=== PATIENT | male | born 1940 | race Caucasian/White ===

== ENCOUNTER 2017-12-21 20:15 | Emergency (ER) | payer MEDICARE, OTHER ==
[2017-12-21 22:03] LABS: ABSOLUTE BASOPHILS # (AUTO) 0.1 10^3/uL (0.0-0.2); ABSOLUTE EOSINOPHILS # (AUTO) 0.4 10^3/uL (0.0-0.6); ABSOLUTE LYMPHOCYTES (AUTO) 1.9 10^3/uL (0.5-4.7); ABSOLUTE MONOCYTES (AUTO) 1.5 10^3/uL (0.1-1.4); BASOPHILS % (AUTO) 0.6 % (0-2); HEMATOCRIT 44.1 % (37.9-51.0); HEMOGLOBIN 14.9 g/dL (13.5-17.0); LYMPHOCYTES % (AUTO) 21.3 % (13-45); MEAN CORPUSCULAR HEMOGLOBIN 30.6 pg (27.0-33.4); MEAN CORPUSCULAR HGB CONC 33.8 g/dL (32.0-36.0); MEAN CORPUSCULAR VOLUME 90 fl (80-97); MONOCYTES % (AUTO) 16.5 % (3-13); PLATELET COUNT 191 10^3/uL (150-450); RED BLOOD COUNT 4.88 10^6/uL (4.35-5.55); SEGMENTED NEUTROPHILS % (AUTO) 56.6 % (42-78); TOTAL CELLS COUNTED % (AUTO) 100 %; WHITE BLOOD COUNT 8.9 10^3/uL (4.0-10.5)
--- NOTE | 2017-12-21 23:34 | ER Document Report ---
ED General - General Chief Complaint: Bloody Stools Stated Complaint: RECTAL BLEEDING Time Seen by Provider: 12/21/17 23:17 Mode of Arrival: Ambulatory Information source: Patient Notes: 77-year-old male with atrial fibrillation(on Xarelto), COPD, hypertension presents with concern for bright red blood in his stool. Patient states that 6 hours prior to arrival he had a bowel movement and noticed that there was blood when he wiped. Since that time patient has had 3 bloody bowel movements. Patient denies any abdominal pain, flank pain, chest pain. He does admit to shortness of breath which he states is chronic and not worse. He denies prior similar symptoms. He denies any changes in medication. Patient has had 2 colonoscopies with the last one 7 years ago. Per the patient it was normal. TRAVEL OUTSIDE OF THE [place] IN LAST 30 DAYS: No - HPI Onset: Just prior to arrival Onset/Duration: Sudden Quality of pain: No pain Severity: None Associated symptoms: None Exacerbated by: Denies Relieved by: Denies Similar symptoms previously: No Recently seen / treated by doctor: Yes - Related Data Allergies/Adverse Reactions: No Known Allergies Allergy (Verified 03/11/15 15:26) Past Medical History - General Information source: Patient - Social History Smoking Status: Former Smoker Frequency of alcohol use: None Drug Abuse: None Lives with: Spouse/Significant other Family History: Reviewed & Not Pertinent Patient has suicidal ideation: No Patient has homicidal ideation: No - Past Medical History Cardiac Medical History: Reports: Hx Atrial Fibrillation, Hx Hypercholesterolemia, Hx Hypertension Denies: Hx Heart Attack Pulmonary Medical History: Reports: Hx COPD Denies: Hx Asthma Neurological Medical History: Denies: Hx Cerebrovascular Accident, Hx Seizures Renal/ Medical History: Denies: Hx Peritoneal Dialysis GI Medical History: Denies: Hx Hepatitis, Hx Hiatal Hernia, Hx Ulcer Infectious Medical History: Denies: Hx Hepatitis Past Surgical History: Reports: Hx Cholecystectomy, Hx Pacemaker. Denies: Hx Open Heart Surgery - Immunizations Hx Diphtheria, Pertussis, Tetanus Vaccination: No Review of Systems - Review of Systems Notes: REVIEW OF SYSTEMS: CONSTITUTIONAL : Denies fever, chills, or sweats. Denies recent illness. Denies weight loss, recent hospitalizations. EENT: Denies visula changes, eye pain. Denies nasal or sinus congestion or discharge. Denies sore throat, oral lesions, difficulty swallowing. CARDIOVASCULAR: Denies chest pain. Denies palpitations or racing or irregular heart beat. Denies lower extremity edema. RESPIRATORY: Denies cough, cold, or chest congestion. Denies shortness of breath, difficulty breathing, or wheezing. GASTROINTESTINAL: Denies abdominal pain or distention. Denies nausea, vomiting , or diarrhea. Denies blood in vomitus, Denies black, tarry stools. Denies constipation. GENITOURINARY: Denies difficulty urinating, painful urination, burning, frequency, blood in urine, or vaginal discharge. MUSCULOSKELETAL: Denies back or neck pain or stiffness. Denies joint pain or swelling. SKIN: Denies rash, lesions or sores. HEMATOLOGIC : Denies easy bruising or bleeding. LYMPHATIC: Denies swollen, enlarged glands. NEUROLOGICAL: Denies confusion or altered mental status. Denies passing out or loss of consciousness. Denies dizziness or lightheadedness. Denies headache. Denies weakness or paralysis or loss of use of either side. Denies problems with gait or speech. Denies sensory loss, numbness, or tingling. Denies seizures. PSYCHIATRIC: Denies anxiety or stress. Denies depression, suicidal ideation, or homicidal ideation. Physical Exam - Vital signs Vitals: Temp Pulse Resp BP Pulse Ox 98.0 F 100 20 137/92 H 95 12/21/17 20:25 12/21/17 20:25 12/21/17 20:25 12/21/17 20:25 12/21/17 20:25 - Notes Notes: PHYSICAL EXAMINATION: GENERAL: Well-appearing, well-nourished and in no acute distress. HEAD: Atraumatic, normocephalic. EYES: Pupils equal round and reactive to light, extraocular movements intact, sclera anicteric, conjunctiva are normal. ENT: Nares patent, oropharynx clear without exudates. Moist mucous membranes. NECK: Normal range of motion, supple without lymphadenopathy LUNGS: Breath sounds clear to auscultation bilaterally and equal. No wheezes rales or rhonchi. HEART: Regular rate and rhythm without murmurs ABDOMEN: Soft, nontender, nondistended abdomen. No guarding, no rebound. No masses appreciated. Rectal: Active bleeding-bright red blood. Musculoskeletal: Normal range of motion, no pitting or edema. No cyanosis. NEUROLOGICAL: Cranial nerves grossly intact. Normal speech, normal gait. Normal sensory, motor exams PSYCH: Normal mood, normal affect. SKIN: Warm, Dry, normal turgor, no rashes or lesions noted. Course - Re-evaluation Re-evalutation: 12/22/17 05:10 Laboratory 12/21/17 12/21/17 12/21/17 21:52 21:52 23:09 WBC 8.9 RBC 4.88 Hgb 14.9 Hct 44.1 MCV 90 MCH 30.6 MCHC 33.8 RDW 14.0 Plt Count 191 Seg Neutrophils % 56.6 Lymphocytes % 21.3 Monocytes % 16.5 H Eosinophils % 5.0 Basophils % 0.6 Absolute Neutrophils 5.0 Absolute Lymphocytes 1.9 Absolute Monocytes 1.5 H Absolute Eosinophils 0.4 Absolute Basophils 0.1 PT INR APTT Sodium Cancelled 142.8 Potassium Cancelled 4.4 Chloride Cancelled 100 Carbon Dioxide Cancelled 34 H Anion Gap Cancelled 9 BUN Cancelled 18 Creatinine Cancelled 1.08 Est GFR ( Amer) Cancelled > 60 Est GFR (Non-Af Amer) Cancelled > 60 Glucose Cancelled 120 H Calcium Cancelled 9.9 Total Bilirubin Cancelled 0.8 Direct Bilirubin Cancelled 0.2 Neonat Total Bilirubin Cancelled Not Reportable Neonat Direct Bilirubin Cancelled Not Reportable Neonat Indirect Bili Cancelled Not Reportable AST Cancelled 39 ALT Cancelled 26 Alkaline Phosphatase Cancelled 117 Total Protein Cancelled 7.8 Albumin Cancelled 4.0 12/21/17 12/22/17 23:47 03:25 WBC 8.5 RBC 4.40 Hgb 13.4 L Hct 38.9 MCV 88 MCH 30.5 MCHC 34.5 RDW 13.8 Plt Count 180 Seg Neutrophils % 62.3 Lymphocytes % 19.8 Monocytes % 13.9 H Eosinophils % 3.5 Basophils % 0.5 Absolute Neutrophils 5.3 Absolute Lymphocytes 1.7 Absolute Monocytes 1.2 Absolute Eosinophils 0.3 Absolute Basophils 0.0 PT 17.0 H INR 1.32 APTT 36.8 H Sodium Potassium Chloride Carbon Dioxide Anion Gap BUN Creatinine Est GFR ( Amer) Est GFR (Non-Af Amer) Glucose Calcium Total Bilirubin Direct Bilirubin Neonat Total Bilirubin Neonat Direct Bilirubin Neonat Indirect Bili AST ALT Alkaline Phosphatase Total Protein Albumin Abdomen/Pelvis CTA 12/22/17 01:30 IMPRESSION: 1. No definite acute vascular abnormalities identified however evaluation is suboptimal due to contrast bolus timing. 2. 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 Follow-up surveillance in 3 years recommended. 3. Diverticulosis without evidence of acute diverticulitis. 4. Enlarged prostate. This exam was performed according to our departmental dose-optimization program, which includes automated exposure control, adjustment of the mA and/or kV according to patient size and/or use of iterative reconstruction technique. 77-year-old male with a history of atrial fibrillation on Xarelto presents with multiple episodes of bright red bleeding from his rectum. Patient denies prior similar symptoms. Patient admits to associated abdominal cramping. On arrival vitals were reviewed and patient is tachycardic, normotensive and not febrile. he does not appear toxic or dehydrated. He is in no acute distress. Previous medical records and nursing notes reviewed. Hemoglobin is stable although it did drop one point during the patient's ED course. Patient has had several bloody bowel movements during his ED course. Patient will be transferred to [facility] for GI evaluation. I believe the likely source of the patient's bleeding is diverticular. He will likely need to stop his Xarelto and have his hemoglobin trended. She is accepted by . 12/22/17 05:11 - Vital Signs Vital signs: Temp Pulse Resp BP Pulse Ox 98.0 F 100 17 109/69 90 L 12/21/17 20:25 12/21/17 20:25 12/22/17 04:54 12/22/17 04:00 12/22/17 04:54 - Laboratory Result Diagrams: 12/22/17 03:25 12/21/17 23:09 Laboratory results interpreted by me: 12/21/17 12/21/17 12/21/17 21:52 23:09 23:47 Hgb Monocytes % 16.5 H Absolute Monocytes 1.5 H PT 17.0 H APTT 36.8 H Carbon Dioxide 34 H Glucose 120 H 12/22/17 03:25 Hgb 13.4 L Monocytes % 13.9 H Absolute Monocytes PT APTT Carbon Dioxide Glucose - Diagnostic Test Radiology reviewed: Image reviewed, Reports reviewed Discharge - Discharge Clinical Impression: Lower GI bleeding Atrial fibrillation Qualifiers: Atrial fibrillation type: chronic Qualified Code(s): I48.2 - Chronic atrial fibrillation Condition: Good Disposition: [facility] Referrals: JUDIE SPANN DPM [NO LOCAL MD] - Follow up as needed
[2017-12-21 23:40] LABS: ALANINE AMINOTRANSFERASE 26 U/L (21-72); ALKALINE PHOSPHATASE 117 U/L (38-126); ANION GAP 9 (5-19); ASPARTATE AMINO TRANSFERASE 39 U/L (17-59); BILIRUBIN,DIRECT 0.2 mg/dL (0.0-0.4); BILIRUBIN,TOTAL 0.8 mg/dL (0.2-1.3); BLOOD UREA NITROGEN 18 mg/dL (7-20); CALCIUM 9.9 mg/dL (8.4-10.2); CARBON DIOXIDE 34 mmol/L (22-30); CHLORIDE 100 mmol/L (98-107); GLUCOSE 120 mg/dL (75-110); POTASSIUM 4.4 mmol/L (3.6-5.0); SODIUM 142.8 mmol/L (137-145); TOTAL PROTEIN 7.8 g/dL (6.3-8.2)
[2017-12-22 00:03] LABS: INTERNATIONAL RATION (INR) 1.32
[2017-12-22 00:04] LABS: PARTIAL THROMBOPLASTIN TIME 36.8 SEC (23.5-35.8)
--- NOTE | 2017-12-22 03:02 | RADIOLOGY REPORT (SQ) ---
EXAM DESCRIPTION: CTA ABDOMEN AND PELVIS WITH AND WITHOUT CONTRAST CLINICAL HISTORY: Hematochezia. Abdominal pain. COMPARISON: 03/19/2016 TECHNIQUE: CTA of the abdomen and pelvis obtained before and after the uncomplicated intravenous administration of iodinated contrast. 3-D/MIP reformatted images available. DLP: 1097 mGycm FINDINGS: Lung Bases: The visualized lung bases are clear. Coronary artery atherosclerosis. Pacemaker leads identified. Bones: No destructive bone lesions identified. Degenerative change of the spine. Abdomen: [place] Vascular findings: Contrast bolus is inadequate for accurate characterization for stenoses. There is in-line flow from the distal thoracic aorta through the abdominal aorta and into the common iliac arteries. There is in-line flow from the common iliac arteries to the external iliac arteries and common femoral arteries. Mild atherosclerotic plaque. The internal iliac arteries are patent. There is fusiform aneurysmal dilatation of the right common iliac artery measuring 1.7 cm in greatest. No aortic dissection identified. Mild atherosclerotic plaque at the origin of the renal arteries. No definite stenosis or occlusion. No accessory renal arteries identified. No renal artery pseudoaneurysm identified. Mild atherosclerotic plaque at the origin of the celiac artery . The celiac artery has normal branch configuration. Mild atherosclerotic plaque at the origin of the superior mesenteric. No filling defects identified in the visualized portions of the superior mesenteric artery or its proximal branches. Atherosclerotic plaque at the origin of the inferior mesenteric artery. The remainder of the inferior mesenteric artery is widely patent. No visceral artery pseudoaneurysm identified. Liver: The liver has normal size and density. No intrahepatic mass or biliary dilatation. Gallbladder: Prior cholecystectomy. Spleen, Pancreas, and Adrenal Glands: The spleen, pancreas, and adrenal glands are unremarkable. Kidneys: The kidneys have normal size and contour without evidence of solid mass or hydronephrosis. Bosniak class I left renal cyst. Vasculature: IVC is unremarkable. Stomach: Small hiatal hernia. Other: No free intraperitoneal air. No free fluid or lymphadenopathy. Pelvis: Bladder: Urinary bladder is unremarkable. Bowel: There are diverticula colon without pericolic fat stranding. No dilated loops of large or small bowel. Postcontrast and delayed images demonstrate no definite active extravasation. Appendix: Normal appendix. Pelvis: Enlarged prostate. IMPRESSION: 1. No definite acute vascular abnormalities identified however evaluation is suboptimal due to contrast bolus timing. 2. 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 Follow-up surveillance in 3 years recommended. 3. Diverticulosis without evidence of acute diverticulitis. 4. Enlarged prostate. This exam was performed according to our departmental dose-optimization program, which includes automated exposure control, adjustment of the mA and/or kV according to patient size and/or use of iterative reconstruction technique.
[2017-12-22] MEDS ORDERED: ONDANSETRON HCL INJ/PF 4 MG/2 ML SDV IV ONE (03:29)
[2017-12-22 03:37] LABS: ABSOLUTE EOSINOPHILS # (AUTO) 0.3 10^3/uL (0.0-0.6); ABSOLUTE LYMPHOCYTES (AUTO) 1.7 10^3/uL (0.5-4.7); ABSOLUTE MONOCYTES (AUTO) 1.2 10^3/uL (0.1-1.4); ABSOLUTE NEUT (AUTO) 5.3 10^3/uL (1.7-8.2); BASOPHILS % (AUTO) 0.5 % (0-2); EOSINOPHILS % (AUTO) 3.5 % (0-6); HEMATOCRIT 38.9 % (37.9-51.0); HEMOGLOBIN 13.4 g/dL (13.5-17.0); LYMPHOCYTES % (AUTO) 19.8 % (13-45); MEAN CORPUSCULAR HEMOGLOBIN 30.5 pg (27.0-33.4); MEAN CORPUSCULAR HGB CONC 34.5 g/dL (32.0-36.0); MEAN CORPUSCULAR VOLUME 88 fl (80-97); MONOCYTES % (AUTO) 13.9 % (3-13); PLATELET COUNT 180 10^3/uL (150-450); RED CELL DISTRIBUTION WIDTH 13.8 % (11.5-14.0); SEGMENTED NEUTROPHILS % (AUTO) 62.3 % (42-78); TOTAL CELLS COUNTED % (AUTO) 100 %; WHITE BLOOD COUNT 8.5 10^3/uL (4.0-10.5)
[2017-12-22 06:21] VITALS: BP 103/75
== END 2017-12-22 06:37 | disposition short-term general hospital (02) ==
LOC: ER 20:15
DX: K92.2 Gastrointestinal hemorrhage, unspecified (principal); I48.2 Chronic atrial fibrillation; J44.9 Chronic obstructive pulmonary disease, unspecified; I10 Essential (primary) hypertension; E78.00 Pure hypercholesterolemia, unspecified; Z79.02 Long term (current) use of antithrombotics/antiplatelets; Z90.49 Acquired absence of other specified parts of digestive tract; Z95.0 Presence of cardiac pacemaker
CPT/HCPCS: 99285; 96374; 36415; 85025; 85610; 85730; 80053; 74174; J2405

== ENCOUNTER 2019-04-14 09:06 | Emergency (ER) | payer MEDICARE, OTHER ==
[2019-04-14] MEDS ORDERED: AMOXICILLIN TR/POT CLAVULANATE 500-125 MG TAB PO ONE (09:28)
[2019-04-14] MEDS ORDERED: AMOXICILLIN TR/POT CLAVULANATE 250-125 MG TAB PO ONE (09:33)
[2019-04-14] MEDS ORDERED: LIDOCAINE 1% INJ-PF (10 MG/ML) 30 ML SDV INJ ONE (09:33)
[2019-04-14] MEDS ORDERED: NEOMY/BACITRAC ZN/POLY OINT 15 GM TP ONE (10:29)
--- NOTE | 2019-04-14 11:46 | ER Document Report ---
ED Animal Bite - General Chief Complaint: Dog Bite Stated Complaint: DOG BITE Time Seen by Provider: 04/14/19 09:13 Primary Care Provider: ABILIO LANDRUM MD [Primary Care Provider] - Follow up as needed TRAVEL OUTSIDE OF THE [place] IN LAST 30 DAYS: No - HPI Type of animal: Dog Appearance of animal: Appeared well Animal's immunizations: Unknown Animal captured or known: Yes Animal control notified: Yes Notes: This is a 79-year-old gentleman who presents today with complaint of a dog bite to his right forearm. Patient states that he was talking with his neighbor when the neighbor's dog came and grabbed him on his pants. He tried to get the dog off him and the dog bit him. Animal control was called promptly. Animal control is able to current time the dog. Patient complains of laceration to his right forearm. He denies any other obvious injuries except for some bruising in his left upper thigh. He denies any pain. Bleeding is controlled. - Related Data Allergies/Adverse Reactions: No Known Allergies Allergy (Verified 04/14/19 09:26) Past Medical History - Social History Smoking Status: Never Smoker Chew tobacco use (# tins/day): No Frequency of alcohol use: None Drug Abuse: None Family History: Reviewed & Not Pertinent Patient has suicidal ideation: No Patient has homicidal ideation: No - Past Medical History Cardiac Medical History: Reports: Hx Atrial Fibrillation, Hx Hypercholesterolemia, Hx Hypertension Denies: Hx Heart Attack Pulmonary Medical History: Reports: Hx COPD Denies: Hx Asthma Neurological Medical History: Denies: Hx Cerebrovascular Accident, Hx Seizures Renal/ Medical History: Denies: Hx Peritoneal Dialysis GI Medical History: Denies: Hx Hepatitis, Hx Hiatal Hernia, Hx Ulcer Infectious Medical History: Denies: Hx Hepatitis Past Surgical History: Reports: Hx Cholecystectomy, Hx Pacemaker. Denies: Hx Open Heart Surgery - Immunizations Hx Diphtheria, Pertussis, Tetanus Vaccination: No Review of Systems - Review of Systems Cardiovascular: denies: Chest pain Respiratory: denies: Cough Gastrointestinal: denies: Abdominal pain Skin: denies: Other - Dog bite -: Yes All other systems reviewed and negative Physical Exam - Vital signs Notes: Reviewed per nurse's notes. - General General appearance: Appears well, Alert - Respiratory Respiratory status: No respiratory distress Chest status: Nontender Breath sounds: Normal Chest palpation: Normal - Cardiovascular Rhythm: Regular Heart sounds: Normal auscultation Murmur: No - Abdominal Inspection: Normal Distension: No distension Bowel sounds: Normal Tenderness: Nontender Organomegaly: No organomegaly - Extremities General upper extremity: Nontender, Normal color, Normal ROM, Normal temperature, Other - There is slight bruising to the left upper thigh. No skin break. There is a gaping laceration under the right forearm. There is significant missing skin. Laceration length is about 5 cm. There is also a small laceration about 1.5 cm on the medial aspect of the right forearm. That is also open and bleeding. General lower extremity: Normal inspection, Nontender, Normal color, Normal ROM, Normal temperature, Normal weight bearing. No: Rosa's sign - Skin Skin Temperature: Warm Skin irregularity: Laceration - Lacerations to the right forearm as described in the extremity exam. Course - Re-evaluation Re-evalutation: 04/14/19 11:46 Clinical picture is consistent with dog bite. Given the fact that this patient is on anticoagulation meds and there is some significant bleeding, gaping lacerations, I will suture. Patient understands the risk of infection with suturing. Will cover with Augmentin. 04/14/19 12:12 Patient is doing well. Patient counseled. Since dog is known and can be quarantined, there is no indication for rabies at this time. Animal control has been in touch with the patient and was at the scene. Patient is stable for discharge. Counseled to return immediately if any redness or drainage from the wound. I accidentally prescribed Augmentin two times but canceled one ( record still looks like 2 prescriptions). Procedures - Laceration/Wound Repair Right Distal Arm Wound length (cm): 5 Wound's Depth, Shape: Irregular, Contused tissue Laceration pre-procedure: Betadine prep applied, Shur-Clens applied, Other - Wounds washed thouroughly with surgical scrubs. Anesthetic type: 1% Lidocaine Wound explored: Clean Irrigated w/ Saline (mLs): 25 Wound Repaired With: Sutures Suture Size/Type: 5:0, Prolene Number of Sutures: 8 - 5 anterior, 3 posterior Post-procedure wound care: Sterile dressing applied Post-procedure NV exam normal: Yes Complications: No Discharge - Discharge Clinical Impression: Dog bite of arm Qualifiers: Encounter type: initial encounter Laterality: right Qualified Code(s): S41.151A - Open bite of right upper arm, initial encounter Condition: Good Disposition: HOME, SELF-CARE Instructions: Animal Bites ([facility]) Additional Instructions: Return if any redness or drainage from wound. Follow-up with your doctor in 7-10 days for suture removal ( or return here). Animal control will notify you if the dog starts acting strange and if you will need Rabies vaccine. Prescriptions: Amox Tr/Potassium Clavulanate [Augmentin 875-125 Tablet] 1 tab PO BID 10 Days #20 tablet Referrals: ABILIO LANDRUM MD [Primary Care Provider] - Follow up as needed
[2019-04-14 14:18] VITALS: BP 128/72
== END 2019-04-14 12:23 | disposition home or self-care (01) ==
LOC: ER 09:06
DX: S51.851A Open bite of right forearm, initial encounter (principal); S41.151A Open bite of right upper arm, initial encounter; S70.12XA Contusion of left thigh, initial encounter; W54.0XXA Bitten by dog, initial encounter; Y93.89 Activity, other specified; I10 Essential (primary) hypertension; J44.9 Chronic obstructive pulmonary disease, unspecified; I48.91 Unspecified atrial fibrillation; Z79.01 Long term (current) use of anticoagulants; Z95.0 Presence of cardiac pacemaker
CPT/HCPCS: 99283; 12002; A9270 ×2; J3490 ×2